=== PATIENT | female | born 2000 | race Caucasian/White ===

== ENCOUNTER 2020-06-30 23:18 | Emergency (ER) | payer MEDICAID ==
[~2020-06-30] VITALS: Ht 165.1 cm; Wt 59.0 kg
[2020-06-30 23:18] VITALS: BP 139/91
== END 2020-07-01 01:09 | disposition home or self-care (01) ==
LOC: ER 23:24
DX: R21 Rash and other nonspecific skin eruption (principal); R20.2 Paresthesia of skin; Z88.6 Allergy status to analgesic agent